=== PATIENT | female | born 2000 | race Caucasian/White ===

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

== ENCOUNTER 2022-06-15 07:48 | Emergency (ER) | payer BC, MEDICAID, SELFPAY ==
[2022-06-15 08:00] VITALS: BP 166/96; PULSE 152; RESP 29; TEMP 36.8; O2SAT 97
--- NOTE | 2022-06-15 08:04 | ECG_ITS ---
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 Measurements Intervals [place] Rate: 147 P: 53 GA: 139 QRS: 55 QRSD: 77 T: 32 QT: 287 QTc: 450 Interpretive Statements SINUS TACHYCARDIA, POSSIBLE ATRIAL FLUTTER ABNORMAL RHYTHM ECG No previous ECG available for comparison Electronically Signed On 06-15-2022 22:03:34 DETAIL TECHNICIAN by Rhett Mireles M.D. [email or web address] medical [facility], [facility]woodRSI ([employer])/store/NU/[id number] f
--- NOTE | 2022-06-15 08:04 | XRR_ITS ---
PROCEDURE INFORMATION: Exam: XR Chest Exam date and time: 06/15/2022 8:49 AM Age: 22 years old Clinical indication: Pain; Chest pressure; Additional info: Chest pain tachycardia TECHNIQUE: Imaging protocol: Radiologic exam of the chest. Views: 1 view. COMPARISON: No relevant prior studies available. FINDINGS: Lungs: No consolidation. Pleural spaces: Unremarkable. No pleural effusion. No pneumothorax. Heart/Mediastinum: No cardiomegaly. Bones/joints: No acute findings. XR/XR chest 1V portable [id number] IMPRESSION: No acute findings.
--- NOTE | 2022-06-15 08:05 | W.ED.CHESTPA ---
HPI - Chest Pain General: Chief Complaint: Chest Pain Stated Complaint: chest pain Time Seen by Provider: 06/15/22 07:49 History of Present Illness: Catherine is a 22-year-old female that presents to the emergency department with cute onset of chest pain while she was at work. She reports pain is more centrally located but also far right lateral chest. She is tachypneic, reports shortness of breath, and is diaphoretic. She is pale appearing. Patient denies any current medical history but per her significant other, she had a cardiac arrhythmia when she was younger. Denies tobacco/nicotine, recreational drugs or routine alcohol use. Associated symptoms: Reports palpitations; Deny abdominal pain, dyspnea, fever(s), nausea or vomiting Review of Systems General: Reports: 10 or more systems reviewed and unremarkable except in HPI and below Const: Reports: other (She is diaphoretic); Denies: fever(s), chills, change in appetite, change in weight, fatigue or malaise Eyes: Denies: change in vision, eye discomfort, eye discharge or eye redness ENMT: Denies: throat pain, enlarged tonsils, odynophagia, hoarseness, ear or mastoid pain, ear discharge, change in hearing, tinnitus, nasal discharge, nasal congestion, post nasal drip or sinus pain Card: Reports: chest pain, palpitations, lightheadedness, dyspnea on exertion and orthopnea; Denies: irregular heart rhythm, edema or leg pain with exertion Resp: Denies: dyspnea, productive cough, non-productive cough, wheezing, stridor or chest congestion GI: Denies: abdominal pain, nausea, vomiting, dysphagia, diarrhea, constipation, bloating, GI cramping or hematochezia : Denies: flank pain, difficulty voiding, dysuria, urinary frequency, urinary urgency, urinary hesitancy, oliguria or hematuria Musc: Denies: neck pain, back pain, extremity pain, joint pain, joint swelling, joint redness, joint warmth or muscle weakness Skin/Breast: Denies: rash, pruritus, erythema, photosensitivity or new lesions Neuro: Denies: headache(s), numbness in extremities, weakness in extremities, sensory changes, lack of coordination, difficulty walking, frequent falls, dizziness, confusion, Slurred speech present, difficulty communicating thoughts, seizure-like activity or involuntary movements Endo: Denies: polyuria, polydipsia or tired all the time Saleem/Lymph: Denies: easy bruising or easy bleeding PFS ED PFSH: Medical History (Updated 06/15/22 @ 11:32 by JOSE Branham) No significant past medical history Psychiatric care Surgical History No significant past surgical history Social History Smoking and tobacco status: never smoked Supplemental PFSH Information: Familial history of Xajtg-Jzltrsvjj-Ufwip?reported Physical Exam Const: COMMON NORMALS: no acute distress, patient oriented x3 and alert GENERAL APPEARANCE: cooperative ORIENTATION/CONSCIOUSNESS: Yes awake, Yes oriented to person, Yes oriented to place and Yes oriented to time HENMT: COMMON NORMALS: normocephalic and atraumatic HEAD & SCALP: normocephalic and atraumatic FACE & SINUS: normal facial exam MOUTH: Normal oral and palatal mucosa present THROAT: posterior oropharynx normal Eye: COMMON NORMALS: Equal, round and reactive pupils present, EOMs intact bilaterally, conjunctivae normal and no scleral icterus GENERAL EYE: appearance normal, both eyes and all related structures ALIGNMENT: Yes alignment normal PERIORBITAL: periorbital findings normal CONJUNCTIVA: Yes conjunctivae normal PUPIL: Yes Equal, round and reactive pupils present Neck/C-Spine: COMMON NORMALS: full ROM GENERAL: Yes normal visual inspection Lymph: LYMPHATIC: no lymphadenopathy noted Chest: COMMONS NORMALS: normal inspection of the chest CHEST: Yes Symmetrical chest wall rise Breast/axilla inspection: Yes no chest deformity, asymmetry, normal contours, no nodules, masses, tenderness Resp: COMMON NORMALS: No retractions, No use of accessory muscles and clear to auscultation bilaterally EFFORT & INSPECTION: Yes able to speak in complete sentences and Yes symmetric chest movement AUSCULTATION: clear to auscultation bilaterally Cardio: COMMON NORMALS: S1 normal heart sound present and S2 normal heart sound present JUGULAR VENOUS DISTENTION: no JVD PALPATION: normal PMI RATE: tachycardic RHYTHM: abnormal rhythm HEART SOUNDS: S1 normal heart sound present and S2 normal heart sound present PERIPHERAL PULSES: radial pulses present GI: COMMON NORMALS: Normal to inspection, nondistended, normoactive bowel sounds present, Soft to palpation, non-tender and No hepatosplenomegaly present INSPECTION: Yes normal to inspection AUSCULTATION: Yes normoactive bowel sounds PALPATION: Yes Soft to palpation and Yes No hepatosplenomegaly present RECTAL EXAM: deferred Extremity: COMMON NORMALS: normal to inspection GENERAL: Yes normal exam except as noted Neuro: COMMON NORMALS: patient oriented x3 SENSORIUM/ORIENTATION: Yes alert, Yes oriented to person, Yes oriented to place and Yes oriented to time CRANIAL NERVES: Yes CN normal except as noted Psych: COMMON NORMALS: mental status grossly normal, Normal thought process present, cooperative, activity/motor behavior normal, denies homicidal ideation and denies suicidal ideation THOUGHT PROCESS: Normal thought process present Skin: COMMON NORMALS: no rashes or lesions noted, no wounds and turgor normal GENERAL SKIN EXAM: no rashes or lesions noted and turgor normal Course Vital Signs: Vital signs: Vital Signs Temperature 98.2 F 06/15/22 08:00 Pulse Rate 99 06/15/22 08:15 Respiratory Rate 15 06/15/22 08:15 Blood Pressure 134/98 06/15/22 08:15 Pulse Oximetry 99 06/15/22 08:15 Oxygen Delivery Me thod 06/15/22 08:15 Oxygen Flow Rate 2 06/15/22 08:15 MDM - Chest Pain Medical Decision Making Differential diagnosis includes cardiac ischemia, pneumonia, pulmonary embolism, cardiac arrhythmia Patient is a 22-year-old healthy appearing female that presents with acute onset of chest pain and shortness of breath. Patient denies any medical history but her significant other does report some type of cardiac arrhythmia when she was younger. Patient is pale and diaphoretic. She has been seen 1 time previously in the system. On arrival to the emergency department we obtained a EKG which is a tacky arrhythmia possible atrial fibrillation. There is quite a bit of ectopy on it. She has a rate of 150. She is normotensive. Patient was placed on 2 L nasal cannula and an IV was started. Laboratory studies ordered included a CBC, CMP, troponin and BNP, lipase, d-dimer. I have also ordered a chest x-ray and CT chest PE protocol. Patient was given 324 mg of baby aspirin and 1 dose of nitro. Chest pain was unaffected. Chest pain did resolve with return to normal sinus rhythm. Patient had no further chest pain and denies any further symptoms. Findings: D-dimer was 0.29. CT chest PE protocol was discontinued. Patient's tachycardia did improve. Her heart rate dropped to the mid 80s. It is a sinus rhythm without ectopy. In discussing with patient and her significant other, it was reported that patient's mother has Shllz-Luqakbhiy-Yjvri. She has not been diagnosed previously with this. No delta waves apparent on initial or subsequent EKGs. Her initial EKG was completed at 0756 and reveals a sinus tachycardia pretty significant ectopy. She has a ventricular rate of 147 beats per minute, QTc of 371. Subsequent EKG performed at 1009. It is sinus rhythm/sinus arrhythmia without delta wave. Ventricular rate is 74 beats a minute and QTc is 410. Chest x-ray reveals no acute findings Laboratory studies reveal no leukocytosis, anemias, electrolyte disturbance, bump in troponin, elevated BNP. There is no elevation in renal or hepatic function. No evidence of UTI. Negative test, and negative urine drug screen. Patient and I reviewed all findings and discussed neck steps. Ultimately I do not believe she warrants admission.. Furthermore she would like to go home. Going to give her the next 2 days off from work. I have consulted case management for them to arrange cardiology consult on Thursday. Patient has been instructed to return to the emergency department should she develop chest pain, shortness of breath, palpitations, lightheadedness and so forth. Patient is agreeable. All questions answered Lab Data 06/15/22 08:05 06/15/22 08:05 Radiology Impressions Chest X-Ray 06/15/22 08:04 IMPRESSION: No acute findings. Laboratory Results WBC 10.1 10^3/uL (4.5-13.0) 06/15/22 08:05 RBC 4.88 10^6/uL (4.1-5.3) 06/15/22 08:05 Hgb 14.9 g/dL (11.5-15.3) 06/15/22 08:05 Hct 44.2 % (37.0-47.0) 06/15/22 08:05 MCV 90.6 fl (81-99) 06/15/22 08:05 MCH 30.5 pg (28.0-34.0) 06/15/22 08:05 MCHC 33.7 g/dL (30.0-36.0) 06/15/22 08:05 RDW 12.3 % (12.1-15.1) 06/15/22 08:05 Plt Count 302 10^3/cmm (130-400) 06/15/22 08:05 MPV 9.7 fL (7.4-10.4) 06/15/22 08:05 Neut % (Auto) 74.9 % 06/15/22 08:05 Lymph % (Auto) 18.9 % 06/15/22 08:05 [place] % (Auto) 5.0 % 06/15/22 08:05 Eos % (Auto) 0.6 % 06/15/22 08:05 Baso % (Auto) 0.3 % 06/15/22 08:05 Neut # (Auto) 7.53 10^3/uL (1.8-8.0) 06/15/22 08:05 Lymph # (Auto) 1.9 10^3/uL (1.5-6.5) 06/15/22 08:05 [place] # (Auto) 0.5 10^3/uL (0.2-0.9) 06/15/22 08:05 Eos # (Auto) 0.1 10^3/uL (0.0-0.8) 06/15/22 08:05 Baso # (Auto) 0.0 10^3/uL (0.0-0.1) 06/15/22 08:05 Nucleated RBC % (auto) 0 % 06/15/22 08:05 Nucleated RBCs # 0.0 /100WBC 06/15/22 08:05 D-Dimer <= 0.27 ug/mIFEU (0-0.59) 06/15/22 08:05 Sodium 131 mmol/L (136-145) L 06/15/22 08:05 Potassium 4.1 mmol/L (3.5-5.1) 06/15/22 08:05 Chloride 98 mmol/L (98-107) 06/15/22 08:05 Carbon Dioxide 20 mmol/L (22-29) L 06/15/22 08:05 Anion Gap 17.1 (5-19) 06/15/22 08:05 BUN 10 mg/dL (6-20) 06/15/22 08:05 Creatinine 0.6 mg/dL (0.5-0.9) 06/15/22 08:05 GFR Calculation 127.5 mL/min (90-130) 06/15/22 08:05 Glucose 110 mg/dL (65-115) 06/15/22 08:05 Calculated Osmolality 272 mOsm/kg (285-295) L 06/15/22 08:05 Calcium 9.4 mg/dL (8.5-10.5) 06/15/22 08:05 Total Bilirubin 0.2 mg/dL (0.15-1.2) 06/15/22 08:05 AST 21 U/L (0-32) 06/15/22 08:05 ALT 32 U/L (0-33) 06/15/22 08:05 Alkaline Phosphatase 61 U/L (35-105) 06/15/22 08:05 Troponin T Baseline 6 ng/L (0-10) 06/15/22 08:05 Troponin T 120 Minute 6.77 ng/L (0-10) 06/15/22 09:51 Delta Troponin T 0.77 ABS# (0-10) 06/15/22 09:51 NT-Pro-B Natriuret Pep 36 pg/mL (0-125) 06/15/22 08:05 Total Protein 7.2 g/dL (6.6-8.7) 06/15/22 08:05 Albumin 4.4 g/dL (3.5-5.2) 06/15/22 08:05 Globulin 2.8 g/dL (1.3-4.6) 06/15/22 08:05 Lipase 20 U/L (13-60) 06/15/22 08:05 HCG, Qual Negative (Negative) 06/15/22 09:07 Urine Color Straw (Yellow) 06/15/22 09:07 Urine Appearance Clear (CLEAR) 06/15/22 09:07 Urine pH 8 (5-7) H 06/15/22 09:07 Ur Specific [place] 1.010 (1.005-1.030) 06/15/22 09:07 Urine Protein Neg (Negative) 06/15/22 09:07 Urine Glucose (UA) Norm (Normal) 06/15/22 09:07 Urine Ketones Negative (Negative) 06/15/22 09:07 Urine Blood Neg (Negative) 06/15/22 09:07 Urine Nitrate Negative (Negative) 06/15/22 09:07 Urine Bilirubin Neg (Negative) 06/15/22 09:07 Prot Sulfosalicylic Acd Negative (Negative) 06/15/22 09:07 Urine Urobilinogen Norm mg/dL (Negative) 06/15/22 09:07 Ur Leukocyte Esterase Negative (Negative) 06/15/22 09:07 Urine Opiates Screen Negative ng/mL (Negative) 06/15/22 09:07 Ur Barbiturates Screen Negative ng/mL (Negative) 06/15/22 09:07 Ur Phencyclidine Scrn Negative ng/mL (Negative) 06/15/22 09:07 Ur Amphetamines Screen Negative ng/mL (Negative) 06/15/22 09:07 U Benzodiazepines Scrn Negative ng/mL (Negative) 06/15/22 09:07 Urine Cocaine Screen Negative ng/mL (Negative) 06/15/22 09:07 U Marijuana (THC) Screen Negative ng/mL (Negative) 06/15/22 09:07 Discharge Plan Discharge Patient Disposition: Home Clinical Impression: Chest pain, Atrial tachycardia Condition: Stable Prescriptions: No Action No Known Home Medications Discharge Orders: Discharge ED (Routine); Ordered 06/15/22 Ordered By: Tez Man Discharge Diet: Advance as tolerated Discharge Activity: Resume usual activity Patient Instructions: Chest Pain (ED), Atrial Tachycardia (ED) Activity Restrictions/Additional Instructions: Please return to the emergency department for new, concerning, worsening symptoms. Chest pain, fast heartbeat, or any other symptoms please return to the emergency I have asked case management to set up follow-up for you. A cardiology consult has been sent Stand Alone Forms: Work/School Release Coding Level of Care Code ED Experimental Preflight Mechanic for Rajan Mcdermott
[2022-06-15 08:14] LABS: Basophils % 0.3 %; Eosinophils # 0.1 10^3/uL (0.0-0.8); Eosinophils % 0.6 %; Hematocrit 44.2 % (37.0-47.0); Hemoglobin 14.9 g/dL (11.5-15.3); Lymphocytes # 1.9 10^3/uL (1.5-6.5); Lymphocytes % 18.9 %; Mean Corpuscular HGB Conc 33.7 g/dL (30.0-36.0); Mean Corpuscular Hemoglobin 30.5 pg (28.0-34.0); Mean Corpuscular Volume 90.6 fl (81-99); Mean Platelet Volume 9.7 fL (7.4-10.4); Monocytes # 0.5 10^3/uL (0.2-0.9); Neutrophils # 7.53 10^3/uL (1.8-8.0); Neutrophils % 74.9 %; Nucleated Red Blood Cells % 0 %; Platelet Count 302 10^3/cmm (130-400); Red Blood Count 4.88 10^6/uL (4.1-5.3); Red Cell Distribution Width 12.3 % (12.1-15.1); White Blood Count 10.1 10^3/uL (4.5-13.0)
--- NOTE | 2022-06-15 08:14 | PC.PHAR ---
pt states she takes no rx or otc medications
[2022-06-15 08:15] VITALS: BP 134/98; PULSE 99; RESP 15; O2SAT 99
[2022-06-15] MEDS: aspirin 81 mg Chew Tablet 324 MG PO (08:20)
[2022-06-15] MEDS: ondansetron 2 mg/ML SDV 2 mL 4 MG IVP (08:20)
[2022-06-15] MEDS: sodium chloride 0.9% 1,000 ML 999 ML IV (08:23)
[2022-06-15 08:30] LABS: D Dimer <= 0.27 ug/mIFEU (0-0.59)
[2022-06-15 08:43] LABS: Alanine Aminotransferase 32 U/L (0-33); Albumin Level 4.4 g/dL (3.5-5.2); Alkaline Phosphatase 61 U/L (35-105); Anion Gap 17.1 (5-19); Aspartate Amino Transferase 21 U/L (0-32); Blood Urea Nitrogen 10 mg/dL (6-20); Calcium 9.4 mg/dL (8.5-10.5); Carbon Dioxide 20 mmol/L (22-29); Chloride 98 mmol/L (98-107); Globulin 2.8 g/dL (1.3-4.6); Glomerular Filtration Rate 127.5 mL/min (90-130); Glucose 110 mg/dL (65-115); Lipase 20 U/L (13-60); NT Pro B Type Natriuretic Pept 36 pg/mL (0-125); Osmolality Calculated 272 mOsm/kg (285-295); Potassium 4.1 mmol/L (3.5-5.1); Sodium 131 mmol/L (136-145); Total Bilirubin 0.2 mg/dL (0.15-1.2); Total Protein 7.2 g/dL (6.6-8.7)
[2022-06-15 09:05] LABS: Troponin(5th) Baseline 6 ng/L (0-10)
[2022-06-15 09:10] LABS: Add Urine Microscopic? NO; Charge for UA Resulting for Rev
[2022-06-15 09:26] LABS: Bilirubin Urine Neg (Negative); Blood Urine Neg (Negative); Glucose Urine UA Norm (Normal); HCG Qualitative Urine. Negative (Negative); Ketones Urine Negative (Negative); Leukocyte Esterase Urine Negative (Negative); Nitrate Urine Negative (Negative); Protein Urine Neg (Negative); Sulfosalicylic Acid Urine Negative (Negative); Urine Appearance Clear (CLEAR); Urine Color Straw (Yellow); Urobilinogen Urine Norm (Negative); pH Urine 8 (5-7)
[2022-06-15 09:35] LABS: Amphetamines Screen Urine Negative (Negative); Barbiturates Screen Urine Negative (Negative); Benzodiazepines Screen Urine Negative (Negative); Cocaine Screen Urine Negative (Negative); Opiate Screen Urine Negative (Negative); PCP Screen Urine Negative (Negative); THC Screen Urine Negative (Negative)
--- NOTE | 2022-06-15 10:04 | ECG_ITS ---
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 Measurements Intervals [place] Rate: 74 P: 51 VT: 151 QRS: 55 QRSD: 92 T: 27 QT: 383 QTc: 426 Interpretive Statements SINUS RHYTHM WITH SINUS ARRHYTHMIA Compared to ECG 06/15/2022 07:56:15 No significant changes Electronically Signed On 06-15-2022 22:19:41 EMERGENCY OPERATOR by Rhett Mireles M.D. [id number]
[2022-06-15 10:34] LABS: Troponin 5 2HR 6.77 ng/L (0-10)
[2022-06-15 11:47] LABS: Troponin 5 2HR Delta 0.77 ABS# (0-10)
--- NOTE | 2022-06-16 12:38 | DCPLANNER ---
Addendum entered by Allyn Eugene 08/07/22 07:58: Patient had a follow up appointment scheduled with heart care - patient did not attend appointment Addendum entered by Allyn Eugene 06/19/22 08:39: Patient has a follow up appointment scheduled for Thursday, August 06, 2022 at 3:[address] Mireles at [facility]. clinic will call patient with appointment information. Original Note: mechanical engineering manager had message to schedule a follow up appointment for patient with cardiology. mechanical engineering manager sent patients information to the front office staff at [facility]. Patients information will be printed and reviewed. Clinic will call patient with appointment information.
== END 2022-06-15 11:50 | disposition home or self-care (01) ==
PROVIDERS: Emergency Provider Nurse Practitioner
DX: R00.0 Tachycardia, unspecified (principal); I49.8 Other specified cardiac arrhythmias; R06.02 Shortness of breath
CPT/HCPCS: 36415; 71045; 80053; 80306; 81003; 81025; 83690; 83880; 84484; 85025; 85378; 93005; 96361; 96374; 99285; J2405; J7030

== ENCOUNTER 2022-06-17 09:57 | Emergency (ER) | payer MEDICAID, SELFPAY ==
[2022-06-17 09:59] VITALS: BP 132/78; PULSE 98; RESP 17; TEMP 36.9; O2SAT 99; BMI 32.3
--- NOTE | 2022-06-17 10:01 | XR_ITS ---
WS: [id number] Exam: XR chest 1V portable [id number] Date/Time of Exam: 06/17/2022 10:01 AM Reason For Exam: dyspnea/cough Comparison 06/15/2022. Findings: The lungs are clear and fully expanded. Costophrenic angles are sharp. No infiltrates. Bronchovascula r relief appears normal. Cardiac silhouette is unremarkable. Bony elements are intact. XR/XR chest 1V portable [id number] IMPRESSION: Unremarkable chest radiograph.
--- NOTE | 2022-06-17 10:01 | ECG_ITS ---
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 Measurements Intervals [place] Rate: 107 P: 67 NC: 154 QRS: 84 QRSD: 92 T: 23 QT: 331 QTc: 443 Interpretive Statements SINUS TACHYCARDIA Compared to ECG 06/15/2022 10:09:41 Sinus rhythm no longer present Sinus arrhythmia no longer present Electronically Signed On 06-17-2022 17:36:16 BUSINESS DEVELOPMENT COORDINATOR by Roman Shanks M.D. [id number]
--- NOTE | 2022-06-17 10:04 | ED_ITS ---
HPI - SOB/Dyspnea General: Chief Complaint: Chest Pain Stated Complaint: CP/SOB Time Seen by Provider: 06/17/22 10:00 Source: patient Mode of arrival: ambulatory History of Present Illness: HPI Narrative: 22-year-old female with a history of SVT was working at [employer] had another episode SVT with rapid heart rate there is no loss conscious she gets some chest discomfort and short of breath she was given atenolol in the past for her. She she states her doctor stopped that she is evidently recently moved here and has not established with a new doctor. She was given 6 mg of adenosine in the field converted and is in the sinus tachycardia on arrival here. Her only complaint is arm pain where her IV was started. MD elicited complaint: shortness of breath and cough Pertinent past history: other (SVT) Onset (ago): minute(s) Exacerbating factors: nothing Relieving factors: nothing Associated symptoms: Deny abdominal pain, chest congestion, chest pain, cough, diaphoresis, dizziness, extremity pain, fever(s), hemoptysis, lightheadedness, myalgias, nausea, orthopnea, palpitations, paresthesias, polydipsia, polyuria, rash, sense of impending doom, syncope or vomiting Treatment prior to arrival: other (Adenosine 6 mg) Review of Systems Const: Denies: fever(s), chills, fatigue, malaise or diaphoresis ENMT: Denies: throat pain, ear or mastoid pain, nasal discharge or nasal congestion Card: Denies: chest pain, palpitations, lightheadedness, syncope or orthopnea Resp: Denies: dyspnea, productive cough, non-productive cough, wheezing, hemoptysis or chest congestion GI: Denies: abdominal pain, nausea or vomiting : Denies: flank pain, difficulty voiding, dysuria, urinary frequency or urinary urgency Musc: Denies: neck pain, back pain or extremity pain Skin/Breast: Denies: rash or pruritus Neuro: Denies: dizziness Endo: Denies: polyuria or polydipsia PFSH ED PFSH: Medical History No significant past medical history Psychiatric care Surgical History No significant past surgical history Social History Smoking and tobacco status: never smoked Physical Exam Const: GENERAL APPEARANCE: cooperative and comfortable ORIENTATION/CONSCIOUSNESS: Yes awake, Yes oriented to person, Yes oriented to place and Yes oriented to time HENMT: COMMON NORMALS: normocephalic, atraumatic and hearing grossly normal bilaterally HEAD & SCALP: normocephalic and atraumatic Resp: COMMON NORMALS: normal respiratory effort, No retractions, No use of accessory muscles and clear to auscultation bilaterally AUSCULTATION: clear to auscultation bilaterally Cardio: COMMON NORMALS: regular rate, regular rhythm and No murmurs present (Cardio) RATE: regular rate RHYTHM: regular rhythm GI: COMMON NORMALS: Soft to palpation and No hepatosplenomegaly present AUSCULTATION: Yes normoactive bowel sounds PALPATION: Yes Soft to palpation, No Tenderness to palpation present (GI), No Guarding due to palpation present (GI) and Yes No hepatosplenomegaly present Extremity: COMMON NORMALS: normal to inspection, capillary refill normal, no clubbing, cyanosis or edema, no calf tenderness and no pedal edema Neuro: SENSORIUM/ORIENTATION: Yes oriented to person, Yes oriented to place and Yes oriented to time Skin: COMMON NORMALS: no rashes or lesions noted GENERAL SKIN EXAM: no rashes or lesions noted Course Vital Signs: Vital signs: Vital Signs Temperature 98.4 F 06/17/22 09:59 Pulse Rate 98 06/17/22 09:59 Respiratory Rate 17 06/17/22 09:59 Blood Pressure 132/78 06/17/22 09:59 Pulse Oximetry 99 06/17/22 09:59 Oxygen Delivery Me thod 06/17/22 09:59 MDM - SOB/Dyspnea Medical Decision Making Seen today for SVT. Converted in the field and maintaining normal sinus rhythm will start on Toprol-XL 25. Keep follow-up with primary care Medical Records I reviewed the patient's medical records. Lab Data I reviewed the patient's lab results. 06/17/22 10:25 06/17/22 10:25 Labs/Radiology: Radiology Impressions Chest X-Ray 06/17/22 10:01 IMPRESSION: Unremarkable chest radiograph. Laboratory Results WBC 9.2 10^3/uL (4.5-13.0) 06/17/22 10:25 RBC 4.44 10^6/uL (4.1-5.3) 06/17/22 10:25 Hgb 13.7 g/dL (11.5-15.3) 06/17/22 10:25 Hct 41.2 % (37.0-47.0) 06/17/22 10:25 MCV 92.8 fl (81-99) 06/17/22 10:25 MCH 30.9 pg (28.0-34.0) 06/17/22 10:25 MCHC 33.3 g/dL (30.0-36.0) 06/17/22 10:25 RDW 12.2 % (12.1-15.1) 06/17/22 10:25 Plt Count 267 10^3/cmm (130-400) 06/17/22 10:25 MPV 9.6 fL (7.4-10.4) 06/17/22 10:25 Neut % (Auto) 73.6 % 06/17/22 10:25 Lymph % (Auto) 19.9 % 06/17/22 10:25 [place] % (Auto) 5.6 % 06/17/22 10:25 Eos % (Auto) 0.5 % 06/17/22 10:25 Baso % (Auto) 0.3 % 06/17/22 10:25 Neut # (Auto) 6.79 10^3/uL (1.8-8.0) 06/17/22 10:25 Lymph # (Auto) 1.8 10^3/uL (1.5-6.5) 06/17/22 10:25 [place] # (Auto) 0.5 10^3/uL (0.2-0.9) 06/17/22 10:25 Eos # (Auto) 0.1 10^3/uL (0.0-0.8) 06/17/22 10:25 Baso # (Auto) 0.0 10^3/uL (0.0-0.1) 06/17/22 10:25 Nucleated RBC % (auto) 0 % 06/17/22 10:25 Nucleated RBCs # 0.0 /100WBC 06/17/22 10:25 Sodium 138 mmol/L (136-145) 06/17/22 10:25 Potassium 3.8 mmol/L (3.5-5.1) 06/17/22 10:25 Chloride 104 mmol/L (98-107) 06/17/22 10:25 Carbon Dioxide 24 mmol/L (22-29) 06/17/22 10:25 Anion Gap 13.8 (5-19) 06/17/22 10:25 BUN 13 mg/dL (6-20) 06/17/22 10:25 Creatinine 0.5 mg/dL (0.5-0.9) 06/17/22 10:25 GFR Calculation 157.3 mL/min (90-130) H 06/17/22 10:25 Glucose 88 mg/dL (65-115) 06/17/22 10:25 Calculated Osmolality 286 mOsm/kg (285-295) 06/17/22 10:25 Calcium 9.1 mg/dL (8.5-10.5) 06/17/22 10:25 Total Bilirubin 0.3 mg/dL (0.15-1.2) 06/17/22 10:25 AST 21 U/L (0-32) 06/17/22 10:25 ALT 31 U/L (0-33) 06/17/22 10:25 Alkaline Phosphatase 55 U/L (35-105) 06/17/22 10:25 Total Protein 7.1 g/dL (6.6-8.7) 06/17/22 10:25 Albumin 3.9 g/dL (3.5-5.2) 06/17/22 10:25 Globulin 3.2 g/dL (1.3-4.6) 06/17/22 10:25 Discharge Plan Discharge Patient Disposition: Home Clinical Impression: SVT (supraventricular tachycardia) Condition: Stable Prescriptions: New Toprol XL 25 mg tablet extended release 24 hr 25 mg PO DAILY Qty: 30 0RF Discharge Orders: Discharge ED (Routine); Ordered 06/17/22 Ordered By: Jose Payne Discharge Diet: Usual diet Discharge Activity: Resume usual activity Patient Instructions: Opioid Safety, Pain Management Activity Restrictions/Additional Instructions: You were seen today for supraventricular tachycardia. By the time he arrived in the emergency room EMS had already converted you back to a normal sinus rhythm recommend that you start taking Toprol-XL 25 mg once daily follow-up with your primary care doctor within the week. Return if you have recurrent episodes. Coding Level of Care Code ED [employer]ot[employer] Packer for Rajan Mcdermott
[2022-06-17 10:35] LABS: Basophils % 0.3 %; Eosinophils # 0.1 10^3/uL (0.0-0.8); Eosinophils % 0.5 %; Hematocrit 41.2 % (37.0-47.0); Hemoglobin 13.7 g/dL (11.5-15.3); Lymphocytes # 1.8 10^3/uL (1.5-6.5); Lymphocytes % 19.9 %; Mean Corpuscular HGB Conc 33.3 g/dL (30.0-36.0); Mean Corpuscular Hemoglobin 30.9 pg (28.0-34.0); Mean Corpuscular Volume 92.8 fl (81-99); Mean Platelet Volume 9.6 fL (7.4-10.4); Monocytes # 0.5 10^3/uL (0.2-0.9); Monocytes % 5.6 %; Neutrophils # 6.79 10^3/uL (1.8-8.0); Neutrophils % 73.6 %; Nucleated Red Blood Cells % 0 %; Platelet Count 267 10^3/cmm (130-400); Red Blood Count 4.44 10^6/uL (4.1-5.3); Red Cell Distribution Width 12.2 % (12.1-15.1); White Blood Count 9.2 10^3/uL (4.5-13.0)
[2022-06-17 10:58] LABS: Alanine Aminotransferase 31 U/L (0-33); Albumin Level 3.9 g/dL (3.5-5.2); Alkaline Phosphatase 55 U/L (35-105); Anion Gap 13.8 (5-19); Aspartate Amino Transferase 21 U/L (0-32); Blood Urea Nitrogen 13 mg/dL (6-20); Calcium 9.1 mg/dL (8.5-10.5); Carbon Dioxide 24 mmol/L (22-29); Chloride 104 mmol/L (98-107); Globulin 3.2 g/dL (1.3-4.6); Glomerular Filtration Rate 157.3 mL/min (90-130); Glucose 88 mg/dL (65-115); Osmolality Calculated 286 mOsm/kg (285-295); Potassium 3.8 mmol/L (3.5-5.1); Sodium 138 mmol/L (136-145); Total Bilirubin 0.3 mg/dL (0.15-1.2); Total Protein 7.1 g/dL (6.6-8.7)
[2022-06-17] MEDS: metoprolol tartrate 25 mg Tablet PO (11:53)
[2022-06-17 12:46] VITALS: BP 102/60; PULSE 71; RESP 16; O2SAT 94
== END 2022-06-17 12:47 | disposition home or self-care (01) ==
PROVIDERS: Emergency Provider Family Medicine
DX: I47.1 Supraventricular tachycardia (principal)
CPT/HCPCS: 71045; 80053; 85025; 93005; 99285

== ENCOUNTER 2022-06-20 19:54 | Emergency (ER) | payer BC, MEDICAID, SELFPAY ==
[2022-06-20 19:55] VITALS: BP 119/84; PULSE 88; RESP 18; TEMP 37.3; O2SAT 98; BMI 35.1
--- NOTE | 2022-06-20 19:59 | W.ED.CHESTPA ---
HPI - Chest Pain General: Chief Complaint: Chest Pain Stated Complaint: CP Time Seen by Provider: 06/20/22 19:58 History of Present Illness: Ms. Hilliard is a 22-year-old lady with history of SVT presenting to the emergency department due to tachycardia and chest pain. She reports longstanding history without clear etiology based on previous evaluation however does endorse over the past few days that this has been worsening. Substernal pain with radiation to the back that is sharp and worse with movement. At times this causes her to lose consciousness she thinks. No reported seizure-like episode or associated seizure type symptoms. Overall course of symptoms has worsened. Intensity is moderate to severe. Timing is random. No other specific changes in health, exacerbating, or alleviating factors identified. Onset (ago): day(s) Timing of current episode: constant Prior episodes: Yes Pain location: substernal Pain radiation: back Severity: moderate Quality: sharp Relieving factors: nothing Exacerbating factors: exertion and inspiration Associated symptoms: Reports no associated symptoms Review of Systems General: Reports: 10 or more systems reviewed and unremarkable except in HPI and below PFSH ED PFSH: Surgical History No significant past surgical history Family History Mother Cancer melanoma Chronic kidney disease (CKD) Grandfather CAD (coronary artery disease) Family/Other Crohn disease Father Diabetes Social History Smoking and tobacco status: current every day smoker e-cigarettes E-Cigarette Details: vaporizer device and without nicotine Alcohol intake: never Household members: significant other Marital status: Single Current occupational status: employed Current occupation: [employer] Exam Const: COMMON NORMALS: alert GENERAL APPEARANCE: cooperative and well developed HENMT: COMMON NORMALS: normocephalic and atraumatic HEAD & SCALP: normocephalic and atraumatic Eye: COMMON NORMALS: conjunctivae normal CONJUNCTIVA: Yes conjunctivae normal SCLERA: sclerae normal Neck/C-Spine: COMMON NORMALS: supple GENERAL: Yes trachea midline Chest: COMMONS NORMALS: normal palpation of entire chest wall Resp: COMMON NORMALS: clear to auscultation bilaterally EFFORT & INSPECTION: Yes able to speak in complete sentences AUSCULTATION: clear to auscultation bilaterally Cardio: COMMON NORMALS: regular rate and regular rhythm RATE: regular rate RHYTHM: regular rhythm GI: COMMON NORMALS: Soft to palpation PALPATION: Yes Soft to palpation and No Tenderness to palpation present (GI) Extremity: GENERAL: Yes normal exam except as noted and No edema Neuro: COMMON NORMALS: moves all extremities SENSORIUM/ORIENTATION: Yes alert and No Orientation impaired Psych: COMMON NORMALS: mental status grossly normal and Normal thought process present THOUGHT PROCESS: Normal thought process present Course Vital Signs: Vital signs: Vital Signs Temperature 99.1 F 06/20/22 19:55 Pulse Rate 80 06/20/22 22:17 Respiratory Rate 18 06/20/22 19:55 Blood Pressure 122/77 06/20/22 22:17 Pulse Oximetry 98 06/20/22 19:55 MDM - Chest Pain Medical Decision Making 22-year-old female presenting for sharp chest pain. Exam as above. EKG notable for sinus rhythm with normal axis and intervals, no STEMI. Labs similar to prior with no significant hematologic or metabolic abnormality. D-dimer is elevated. Chest x-ray with no lobar consolidation or pneumothorax. CTA chest without acute finding. Patient given IV fluids. Improved on reassessment. Most likely etiology of patient's symptoms is unspecified chest pain. She is low risk by heart score. Further outpatient testing is appropriate. The results of ED evaluation were discussed with the patient including prescriptions and/or symptomatic cares (if applicable) including appropriate and responsible use, followup plan, and return precautions. The patient verbalized understanding and felt safe for discharge. Medical Records I reviewed the patient's medical records. Lab Data I reviewed the patient's lab results. 06/20/22 19:35 06/20/22 19:35 Radiology Impressions Chest X-Ray 06/20/22 20:19 IMPRESSION: No acute findings. Chest CTA 06/20/22 20:38 IMPRESSION: No acute findings. Laboratory Results WBC 12.8 10^3/uL (4.5-13.0) 06/20/22 19:35 RBC 4.73 10^6/uL (4.1-5.3) 06/20/22 19:35 Hgb 14.5 g/dL (11.5-15.3) 06/20/22 19:35 Hct 43.1 % (37.0-47.0) 06/20/22 19:35 MCV 91.1 fl (81-99) 06/20/22 19:35 MCH 30.7 pg (28.0-34.0) 06/20/22 19:35 MCHC 33.6 g/dL (30.0-36.0) 06/20/22 19:35 RDW 12.2 % (12.1-15.1) 06/20/22 19:35 Plt Count 324 10^3/cmm (130-400) 06/20/22 19:35 MPV 10.3 fL (7.4-10.4) 06/20/22 19:35 Neut % (Auto) 65.7 % 06/20/22 19:35 Lymph % (Auto) 26.3 % 06/20/22 19:35 [place] % (Auto) 6.2 % 06/20/22 19:35 Eos % (Auto) 1.2 % 06/20/22 19:35 Baso % (Auto) 0.4 % 06/20/22 19:35 Neut # (Auto) 8.43 10^3/uL (1.8-8.0) H 06/20/22 19:35 Lymph # (Auto) 3.4 10^3/uL (1.5-6.5) 06/20/22 19:35 [place] # (Auto) 0.8 10^3/uL (0.2-0.9) 06/20/22 19:35 Eos # (Auto) 0.2 10^3/uL (0.0-0.8) 06/20/22 19:35 Baso # (Auto) 0.1 10^3/uL (0.0-0.1) 06/20/22 19:35 Nucleated RBC % (auto) 0 % 06/20/22 19:35 Nucleated RBCs # 0.0 /100WBC 06/20/22 19:35 D-Dimer 0.65 ug/mIFEU (0-0.59) H 06/20/22 19:35 Sodium 134 mmol/L (136-145) L 06/20/22 19:35 Potassium 3.6 mmol/L (3.5-5.1) 06/20/22 19:35 Chloride 99 mmol/L (98-107) 06/20/22 19:35 Carbon Dioxide 21 mmol/L (22-29) L 06/20/22 19:35 Anion Gap 17.6 (5-19) 06/20/22 19:35 BUN 20 mg/dL (6-20) 06/20/22 19:35 Creatinine 0.6 mg/dL (0.5-0.9) 06/20/22 19:35 GFR Calculation 127.5 mL/min (90-130) 06/20/22 19:35 Glucose 116 mg/dL (65-115) H 06/20/22 19:35 Calculated Osmolality 282 mOsm/kg (285-295) L 06/20/22 19:35 Calcium 10.2 mg/dL (8.5-10.5) 06/20/22 19:35 Magnesium 1.9 mg/dL (1.7-2.3) 06/20/22 19:35 Total Bilirubin 0.2 mg/dL (0.15-1.2) 06/20/22 19:35 AST 17 U/L (0-32) 06/20/22 19:35 ALT 25 U/L (0-33) 06/20/22 19:35 Alkaline Phosphatase 64 U/L (35-105) 06/20/22 19:35 Troponin T Baseline 6 ng/L (0-10) 06/20/22 19:35 Troponin T 120 Minute 6.00 ng/L (0-10) 06/20/22 21:15 Delta Troponin T 0 ABS# (0-10) 06/20/22 21:15 NT-Pro-B Natriuret Pep 36 pg/mL (0-125) 06/20/22 19:35 Total Protein 7.6 g/dL (6.6-8.7) 06/20/22 19:35 Albumin 4.6 g/dL (3.5-5.2) 06/20/22 19:35 Globulin 3.0 g/dL (1.3-4.6) 06/20/22 19:35 Lipase 25 U/L (13-60) 06/20/22 19:35 TSH 3.17 uIU/mL (0.27-4.20) 06/20/22 19:35 HCG, Qual Negative (Negative) 06/20/22 19:35 Discharge Plan Discharge Patient Disposition: Home Clinical Impression: Chest pain, Heart palpitations Condition: Stable Prescriptions: No Action Toprol XL 50 mg tablet extended release 24 hr 50 mg PO DAILY Qty: 30 0RF Discharge Orders: Discharge ED (Routine); Ordered 06/20/22 Ordered By: Zach Sellers Referrals: Hortencia Escobedo MD [Primary Care Provider] - Discharge Diet: Advance as tolerated and Clear Liquid Discharge Activity: Increase activity as tolerated Patient Instructions: Chest Pain (ED), Heart Palpitations (ED) Activity Restrictions/Additional Instructions: Thank you for visiting the emergency department. You were seen and evaluated for chest pain and racing heart. The exact cause of your symptoms is unclear however does not appear to need inpatient management at this time. Please ensure that you are staying hydrated. I will order an outpatient cardiac catheterization technician and ultrasound of your heart, you should be contacted regarding these. Please follow-up with cardiology and your primary care provider. Return to the emergency department for worsening symptoms or anything else that you are concerned about and feel needs emergency department evaluation. Coding Level of Care Code ED Aging Department Supervisor for Rajan Mcdermott
--- NOTE | 2022-06-20 20:19 | ECG_ITS ---
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 Measurements Intervals [place] Rate: 87 P: 50 [place]: 135 QRS: 62 QRSD: 86 T: 30 QT: 348 QTc: 421 Interpretive Statements SINUS RHYTHM WITH SINUS ARRHYTHMIA Compared to ECG 06/17/2022 10:22:04 Sinus tachycardia no longer present Electronically Signed On 06-21-2022 12:16:53 PORCELAIN ENAMELING SUPERVISOR by Roman Shanks M.D. [id number]
--- NOTE | 2022-06-20 20:19 | XRR_ITS ---
PROCEDURE INFORMATION: Exam: XR Chest Exam date and time: 06/20/2022 8:33 PM Age: 22 years old Clinical indication: Pain; Chest pressure; Additional info: Cp TECHNIQUE: Imaging protocol: Radiologic exam of the chest. Views: 1 view. COMPARISON: CR XR chest 1V portable [id number] 06/17/2022 10:13 AM FINDINGS: Lungs: Unremarkable. No consolidation. Pleural spaces: Unremarkable. No pleural effusion. No pneumothorax. Heart/Mediastinum: Unremarkable. No cardiomegaly. Bones/joints: Unremarkable. XR/XR chest 1V portable [id number] IMPRESSION: No acute findings.
[2022-06-20 20:28] LABS: Basophils # 0.1 10^3/uL (0.0-0.1); Basophils % 0.4 %; Eosinophils # 0.2 10^3/uL (0.0-0.8); Eosinophils % 1.2 %; Hematocrit 43.1 % (37.0-47.0); Hemoglobin 14.5 g/dL (11.5-15.3); Lymphocytes # 3.4 10^3/uL (1.5-6.5); Lymphocytes % 26.3 %; Mean Corpuscular HGB Conc 33.6 g/dL (30.0-36.0); Mean Corpuscular Hemoglobin 30.7 pg (28.0-34.0); Mean Corpuscular Volume 91.1 fl (81-99); Mean Platelet Volume 10.3 fL (7.4-10.4); Monocytes # 0.8 10^3/uL (0.2-0.9); Monocytes % 6.2 %; Neutrophils # 8.43 10^3/uL (1.8-8.0); Neutrophils % 65.7 %; Nucleated Red Blood Cells % 0 %; Platelet Count 324 10^3/cmm (130-400); Red Blood Count 4.73 10^6/uL (4.1-5.3); Red Cell Distribution Width 12.2 % (12.1-15.1); White Blood Count 12.8 10^3/uL (4.5-13.0)
[2022-06-20] MEDS: sodium chloride 0.9% 1,000 ML 999 ML IV (20:28)
[2022-06-20 20:37] LABS: D Dimer 0.65 ug/mIFEU (0-0.59); HCG, Serum Qual Negative (Negative)
--- NOTE | 2022-06-20 20:38 | CTR_ITS ---
PROCEDURE INFORMATION: Exam: CTA Chest With Contrast Exam date and time: 06/20/2022 8:50 PM Age: 22 years old Clinical indication: Pain; Shortness of breath and other: Tachycardia, elevated d-dimer; Chest pressure; Additional info: SOB, pleuritic cp, tachy, elevated ddimer TECHNIQUE: Imaging protocol: Computed tomographic angiography of the chest with contrast. 3D rendering (Not supervised by radiologist): MIP and/or 3D reconstructed images were created by the technologist. Radiation optimization: All CT scans at this facility use at least one of these dose optimization techniques: automated exposure control; mA and/or kV adjustment per patient size (includes targeted exams where dose is matched to clinical indication); or iterative reconstruction. Contrast material: OMNI 350; Contrast volume: 100 ml; Contrast route: INTRAVENOUS (IV); REPORTING DATA: Count of CT and Cardiac NM exams in prior 12 months: This patient has received 0 known CTs and 0 known cardiac nuclear medicine studies in the 12 months prior to the current study. COMPARISON: CR (CHEST, ) 06/20/2022 8:33 PM RADIATION DOSE METRICS: Total DLP (mGy-cm): 317.9 FINDINGS: Pulmonary arteries: Normal. No pulmonary emboli. Aorta: Unremarkable. No aortic aneurysm. No aortic dissection. Lungs: Unremarkable. No consolidation. No masses. Pleural spaces: Unremarkable. No pneumothorax. No pleural effusion. Heart: The heart size is normal. Coronary arteries: No coronary artery calcifications. Mediastinal space: Residual thymus in the anterior mediastinum. Lymph nodes: Unremarkable. No enlarged lymph nodes. Stomach and bowel: Food distended stomach. No wall thickening. Bones/joints: Unremarkable. No acute fracture. Soft tissues: Unremarkable. CT/CT angio chest PE protcl [id number] IMPRESSION: No acute findings.
[2022-06-20] MEDS: iohexol 350 mg/mL 500 mL Btl (per mL) IV (20:43)
[2022-06-20 20:45] LABS: Troponin(5th) Baseline 6 ng/L (0-10)
[2022-06-20 20:55] LABS: Alanine Aminotransferase 25 U/L (0-33); Albumin Level 4.6 g/dL (3.5-5.2); Alkaline Phosphatase 64 U/L (35-105); Anion Gap 17.6 (5-19); Aspartate Amino Transferase 17 U/L (0-32); Blood Urea Nitrogen 20 mg/dL (6-20); Calcium 10.2 mg/dL (8.5-10.5); Carbon Dioxide 21 mmol/L (22-29); Chloride 99 mmol/L (98-107); Glomerular Filtration Rate 127.5 mL/min (90-130); Glucose 116 mg/dL (65-115); Lipase 25 U/L (13-60); Magnesium 1.9 mg/dL (1.7-2.3); NT Pro B Type Natriuretic Pept 36 pg/mL (0-125); Osmolality Calculated 282 mOsm/kg (285-295); Potassium 3.6 mmol/L (3.5-5.1); Sodium 134 mmol/L (136-145); Thyroid Stimulating Hormone 3.17 uIU/mL (0.27-4.20); Total Bilirubin 0.2 mg/dL (0.15-1.2); Total Protein 7.6 g/dL (6.6-8.7)
[2022-06-20 22:17] VITALS: BP 105/71; BP 122/77; BP 137/86; PULSE 80; PULSE 93; PULSE 95
[2022-06-20 23:00] LABS: Troponin 5 2HR Delta 0 ABS# (0-10)
== END 2022-06-20 22:38 | disposition home or self-care (01) ==
PROVIDERS: Emergency Provider Emergency Medicine; PCP Family Medicine
DX: R07.9 Chest pain, unspecified (principal); R00.2 Palpitations; F17.290 Nicotine dependence, other tobacco product, uncomplicated
CPT/HCPCS: 36415; 71045; 71275; 80053; 83690; 83735; 83880; 84439; 84443; 84481; 84484; 84703; 85025; 85378; 93005; 99285; J7030; Q9967